=== PATIENT | male | born 1985 | race Caucasian/White ===

== ENCOUNTER 2019-05-18 11:21 | Emergency (ER) | payer SELFPAY ==
[~2019-05-18] VITALS: Ht 188 cm; Wt 111.4 kg
[~2019-05-18 11:21] MED LIST: CIPRO 500MG TA500 MG PO; NO HOME MEDICATIONS
[2019-05-18 11:23] VITALS: TEMP 97
[2019-05-18] MEDS ORDERED: CEPHALEXIN500 M1 PO (13:57)
[2019-05-18 13:58] VITALS: BP 137/82; PULSE 87
== END 2019-05-18 13:59 | disposition home or self-care (01) ==
LOC: COL.ER 11:21
DX: S62.521A Displaced fracture of distal phalanx of right thumb, initial encounter for closed fracture (principal); S62.521B Displaced fracture of distal phalanx of right thumb, initial encounter for open fracture; S62.630B Displaced fracture of distal phalanx of right index finger, initial encounter for open fracture; Z87.891 Personal history of nicotine dependence; W31.2XXA Contact with powered woodworking and forming machines, initial encounter; Y92.009 Unspecified place in unspecified non-institutional (private) residence as the place of occurrence of the external cause